=== PATIENT | female | born 1990 | race African-American/Black ===

== ENCOUNTER 2020-09-15 06:33 | Emergency (ER) | payer OTHER ==
[~2020-09-15] VITALS: Ht 165.1 cm; Wt 68.0 kg
[2020-09-15 08:56] VITALS: BP 111/77
== END 2020-09-15 08:57 | disposition home or self-care (01) ==
LOC: ER 06:33
DX: T14.8XXA Other injury of unspecified body region, initial encounter (principal); Y04.2XXA Assault by strike against or bumped into by another person, initial encounter; Y93.89 Activity, other specified; Y92.89 Other specified places as the place of occurrence of the external cause; Y99.8 Other external cause status